=== PATIENT | male | born 1985 | race American Indian/Alaskan Native ===

== ENCOUNTER 2017-01-12 13:17 | Emergency (ER) | payer MEDICAID ==
[2017-01-12 13:32] VITALS: BP 145/75
[2017-01-12] MEDS ORDERED: Lidocaine 1% 10 ML MDV INJECT ONE (13:54)
--- NOTE | 2017-01-12 13:59 | EDM.PDOC ---
ED HPI GENERAL MEDICAL PROBLEM - General Chief Complaint: Chest Pain Stated Complaint: CHEST PRESSURE Time Seen by Provider: 01/12/17 13:42 Source of Information: Reports: Patient History Limitations: Reports: No Limitations - History of Present Illness INITIAL COMMENTS - FREE TEXT/NARRATIVE: Patient is a 31-year-old male presents ED complaining of an abscess to his anterior chest. Patient has a history of similar lesion to his chest approx one year ago. Lesion was I&D and was placed on antibiotics for resolution. Patient has no documented history of MRSA per patient. Reports lesion started to swell yesterday with worsening pain. States he had a fever of 101F. He had no fever this morning. Took Motrin this morning for pain. Pain is localized with no radiation. Denies any nausea or vomiting or other abscesses as such. Middle Chest Pain Score (Numeric/FACES): 8 - Related Data Allergies Allergy/AdvReac Type Severity Reaction Status Date / Time No Known Allergies Allergy Verified 01/12/17 13:27 Home Meds: Home Meds Acetaminophen/HYDROcodone [[place] 325-5 MG] 1 tab PO Q6H PRN #12 tablet 01/12/17 [Rx] Ciprofloxacin HCl [Cipro] 500 mg PO BID #28 tablet 01/12/17 [Rx] Doxycycline [Vibramycin] 100 mg PO Q12HR #28 cap 01/12/17 [Rx] Past Medical History - Past Health History Medical/Surgical History: Denies Medical/Surgical History HEENT History: Reports: Impaired Vision Musculoskeletal History: Reports: Back Pain, Chronic Dermatologic History: Reports: Cellulitis - Past Surgical History HEENT Surgical History: Reports: None Social & Family History - Family History Family Medical History: Noncontributory - Tobacco Use Smoking Status *Q: Current Every Day Smoker Years of Tobacco use: 5 Packs/Tins Daily: 1 Used Tobacco, but Quit: No Second Hand Smoke Exposure: No - Caffeine Use Caffeine Use: Reports: Coffee, Soda - Recreational Drug Use Recreational Drug Use: No Drug Use in Last 12 Months: Yes Recreational Drug Type: Reports: Marijuana/Hashish Recreational Drug Use Frequency: Rarely - Living Situation & Occupation Living situation: Reports: , with Family Occupation: Unemployed ED ROS GENERAL - Review of Systems Review Of Systems: ROS reveals no pertinent complaints other than HPI. ED EXAM, SKIN/RASH Exam: See Below Exam Limited By: No Limitations General Appearance: Alert, WD/WN, Mild Distress Ears: Hearing Grossly Normal Nose: Normal Inspection Throat/Mouth: Normal Voice, No Airway Compromise Respiratory/Chest: No Respiratory Distress, Normal Breath Sounds, No Accessory Muscle Use, Other (tenderness to the anterior chest along the right upper sternal border. abscess present measuring approximately 3 cm x 4 cm in diameter. Area is fluctuant with increased redness and pain with palpation.) Cardiovascular: Normal Peripheral Pulses, Regular Rate, Rhythm, No Murmur Peripheral Pulses: 2+: Radial (L) Neurological: Alert, Oriented, CN II-XII Intact, No Motor/Sensory Deficits Psychiatric: Normal Affect, Normal Mood Skin: Warm, Dry ED SKIN PROCEDURES - I&D Site: anterior chest Skin Prep: Sterile Drape Local Anesthesia: Lidocaine: 1% Plain Local Anesthetic Volume: 5cc Area Incised With: 11 Blade Drainage: Purulent, Bloody, Large Amount Probed to Break Up Loculations: Yes Packed With: 1/2 in. Iodoform Sterile Dressinx4(s) Complications: No Course - Vital Signs Last Recorded V/S: Last Vital Signs Temp 97.5 F 01/12/17 13:30 Pulse 90 01/12/17 13:30 Resp 18 01/12/17 13:30 BP 145/75 H 01/12/17 13:30 Pulse Ox 97 01/12/17 13:30 - Orders/Labs/Meds Meds: Medications Discontinued Medications Generic Name Dose Route Start Last Admin Trade Name Freq PRN Reason Stop Dose Admin Hydrocodone Bitart/Acetaminophen 1 tab 01/12/17 14:31 01/12/17 14:54 [place] 325-5 Mg PO 01/12/17 14:32 1 tab ONETIME ONE Administration Doxycycline Hyclate 200 mg 01/12/17 14:31 01/12/17 14:54 Vibramycin PO 01/12/17 14:32 200 mg ONETIME ONE Administration Lidocaine HCl 10 ml 01/12/17 13:54 01/12/17 14:14 Xylocaine 1% INJECT 01/12/17 13:55 10 ml ONETIME ONE Administration - Re-Assessments/Exams Free Text/Narrative Re-Assessment/Exam: Patient has a abscess to the anterior chest along the right upper sternal border. Ultrasound was utilized with pus pockets present. I have ordered lidocaine and instructed the nursing staff to set up for I&D. I&D was completed with no complications. Wound was packed with iodoform. 01/12/17 14:32 Ordered doxycycine 200mg PO and norco 5-325mg po. Will discharge home with instructions and prescriptions as documented. Departure - Departure Time of Disposition: 14:33 Disposition: Home, Self-Care 01 Condition: Good Clinical Impression: Abscess of chest wall - Discharge Information Prescriptions: Doxycycline [Vibramycin] 100 mg PO Q12HR #28 cap Acetaminophen/HYDROcodone [[place] 325-5 MG] 1 tab PO Q6H PRN #12 tablet PRN Reason: Pain (Severe 7-10) Ciprofloxacin HCl [Cipro] 500 mg PO BID #28 tablet Instructions: Abscess, [id number] Forms: ED Department Discharge, ED Return to Work/School Form Additional Instructions: Take the antibiotics as prescribed. Leave packing in place until tomorrow.Cleanse site twice daily with soap and water, pat dry, reapply dressing until it stops draining. This will require healing by secondary intentions which is from the inside out. follow-up with PCP at conclusion of therapy to ensure resolution. Return to ED for any new or worsening symptoms. Again suggest being evaluated by a contract forester to determine best treatment for cystic acne. No driving today since since receiving a sedative medication while in the ED. No driving while taking the [place]. Utilize ibuprofen and Tylenol in alternating fashion for pain. For severe pain take [place] one tab every 6 hours as needed.
[2017-01-12] MEDS ORDERED: Acetaminophen/HYDROcodone 325-5 MG Tab PO ONE (14:31)
[2017-01-12] MEDS ORDERED: Doxycycline 100 MG Cap PO ONE (14:31)
== END 2017-01-12 15:02 | disposition home or self-care (01) ==
LOC: JD.ED 13:17
DX: L02.213 Cutaneous abscess of chest wall (principal); F17.210 Nicotine dependence, cigarettes, uncomplicated
CPT/HCPCS: 10061; 99284; A9270; 10060; 99283-25

== ENCOUNTER 2017-01-30 06:53 | Day surgery (SDC) | payer MEDICAID ==
[~2017-01-30 06:53] MED LIST: Lactated Ringers 1,000 ML IV SCH; Lidocaine 1%/Sod Bicarbonate in NS 8.4% 1 ML Syringe IV PRN; Sodium Chloride 0.9% 10 ML Syringe FLUSH PRN
[2017-01-30] MEDS ORDERED: Propofol 200 MG/20 ML SDV ONE ×3 (07:09→08:36)
[2017-01-30] MEDS ORDERED: fentaNYL 100 MCG/2 ML SDV ONE ×2 (07:09→08:23)
[2017-01-30] MEDS ORDERED: Lidocaine 1% 4 ML ONE ×2 (07:09→08:44)
[2017-01-30] MEDS ORDERED: Midazolam 1 MG/ML 2 ML SDV ONE ×2 (07:09→08:23)
[2017-01-30] MEDS ORDERED: Bupivacaine 0.5%/EPINEPHrine 1:200,000 50 ML MDV ONE (07:22)
[2017-01-30] MEDS ORDERED: Lidocaine 1% with EPINEPHrine 1:100,000 20 ML MDV ONE (07:22)
--- NOTE | 2017-01-30 08:04 | PCM.PREANE ---
Preanesthetic Assessment - Anesthesia/Transfusion/Family Hx Anesthesia History: No Prior Anesthesia Type of Anesthesia Reaction: Unknown Family History of Anesthesia Reaction: No Transfusion History: No Prior Transfusion(s) - Review of Systems General: No Symptoms Pulmonary: No Symptoms Cardiovascular: No Symptoms Gastrointestinal: No Symptoms Neurological: No Symptoms Other: Reports: None - Physical Assessment NPO Status Date: 01/29/17 NPO Status Time: 21:00 Pulse: 91 O2 Sat by Pulse Oximetry: 96 Respiratory Rate: 20 Blood Pressure: 140/81 Temperature: 36.6 C Vital Signs: Last Vital Signs Temp 36.6 C 01/30/17 07:00 Pulse 91 01/30/17 07:00 Resp 20 01/30/17 07:00 BP 140/81 01/30/17 07:00 Pulse Ox 96 01/30/17 07:00 Height: 1.91 m Weight: 156.943 kg ASA Class: 2 Mental Status: Alert & Oriented x3 Airway Class: Mallampati = 2 Dentition: Reports: Normal Dentition, Caries Thyro-Mental Finger Breadths: 3 Mouth Opening Finger Breadths: 3 ROM/Head Extension: Limited/Partial Lungs: Clear to Auscultation, Normal Respiratory Effort Cardiovascular: Regular Rate, Regular Rhythm - Allergies Allergies/Adverse Reactions: Allergies Allergy/AdvReac Type Severity Reaction Status Date / Time No Known Allergies Allergy Verified 01/29/17 13:50 - Blood Blood Available: No Product(s) Available: None - Anesthesia Plan Pre-Op Medication Ordered: None - Acknowledgements Anesthesia Type Planned: MAC Pt an Appropriate Candidate for the Planned Anesthesia: Yes Alternatives and Risks of Anesthesia Discussed w Pt/Guardian: Yes Pt/Guardian Understands and Agrees with Anesthesia Plan: Yes PreAnesthesia Questionnaire - Past Health History Medical/Surgical History: Denies Medical/Surgical History HEENT History: Reports: Impaired Vision Musculoskeletal History: Reports: Back Pain, Chronic Dermatologic History: Reports: Cellulitis - Past Surgical History HEENT Surgical History: Reports: None - SUBSTANCE USE Smoking Status *Q: Current Every Day Smoker Tobacco Use Within Last Twelve Months: Cigarettes Second Hand Smoke Exposure: No Days Per Week of Alcohol Use: 1 Number of Drinks Per Day: 1 Total Drinks Per Week: 1 Recreational Drug Use History: No Recreational Drug Type: Reports: Marijuana/Hashish - HOME MEDS Home Medications: Home Meds Acetaminophen/HYDROcodone [[place] 325-5 MG] 1 tab PO Q6H PRN #12 tablet 01/12/17 [Rx] Doxycycline [Vibramycin] 100 mg PO Q12HR #28 cap 01/12/17 [Rx] - CURRENT (IN HOUSE) MEDS Current Meds: Current Medications Lactated Ringer's (Ringers, Lactated) 1,000 mls @ 125 mls/hr IV ASDIRECTED JOS Last Admin: 01/30/17 07:10 Dose: 125 mls/hr Lidocaine/Sodium Bicarbonate (Buffered Lidocaine 1% In Ns 8.4%) 0.25 ml IV ONETIME PRN PRN Reason: Prior to IV Start Last Admin: 01/30/17 07:10 Dose: 0.25 ml Sodium Chloride (Saline Flush) 10 ml FLUSH ASDIRECTED PRN PRN Reason: Keep Vein Open Discontinued Medications Bupivacaine HCl/Epinephrine Bitart (Marcaine 0.5%/Epinephrine 1:200,000) Confirm Administered Dose 50 ml .ROUTE .STK-MED ONE Stop: 01/30/17 07:23 Fentanyl (Sublimaze) Confirm Administered Dose 100 mcg .ROUTE .STK-MED ONE Stop: 01/30/17 07:10 Lidocaine HCl (Xylocaine-Mpf 1%) Confirm Administered Dose 4 mls @ as directed .ROUTE .STK-MED ONE Stop: 01/30/17 07:10 Lidocaine/Epinephrine (Xylocaine 1% With Epinephrine 1:100,000) Confirm Administered Dose 20 ml .ROUTE .STK-MED ONE Stop: 01/30/17 07:23 Midazolam HCl (Versed 1 Mg/Ml) Confirm Administered Dose 2 mg .ROUTE .STK-MED ONE Stop: 01/30/17 07:10 Propofol (Diprivan 20 Ml) Confirm Administered Dose 200 mg .ROUTE .STK-MED ONE Stop: 01/30/17 07:10
[2017-01-30 08:51] VITALS: BP 136/71
[2017-01-30] MEDS ORDERED: Lactated Ringers 1,000 ML ONE (08:52)
--- NOTE | 2017-01-30 08:52 | PCM.OPNOTE ---
- General Post-Op/Procedure Note Date of Surgery/Procedure: 01/30/17 Operative Procedure(s): 1. Incision and drainage of a furuncle base of the right neck and mid chest wall, with cultures and iodoform packing Findings: 1. There was an inclusion cyst within the skin of the neck furuncle with surrounding inflammatory change. There was some granulation tissue but no saman pus. 2. The suprasternal furuncle pad yellow saman pus along with extensive granulation tissue secondary to aborted healing efforts Pre Op Diagnosis: 1. Furuncle neck. 2. Suprasternal furuncle Post-Op Diagnosis: Same Anesthesia Technique: Local, MAC, Moderate Sedation Primary Surgeon: Benny Hernandez Pathology: Cultures EBL in mLs: 5 Complications: None Condition: Good Free Text/Narrative:: After adequate IV sedation and analgesia was obtained with monitoring the patient was placed in the supine position for the procedures. Betadine solution was used to prep the base of the right neck. The field was draped partially with field towels. Several cc's of local analgesia was given centered over the most tender area which wasn't fluctuant. A 15 blade was used to make a 3 cm incision. A 1 cm inclusion cyst was removed. There were 2 smaller ones in the area. There was extensive scarring and granulation tissue but no saman pus. Cultures were obtained. Iodoform packing and gauze were used for the dressing in this area. The sternal area was prepped next and draped in a similar fashion. 5 mL of analgesia was given. A 3 cm incision was made over a slightly fluctuant area. There was a couple of cc of saman yellow pus that flowed onto the field after breaking up loculations with a hemostat. There was a large amount of granulation tissue. A cruciate skin incision limb was extended to the left to open up this cavity. I debrided the area with gauze and excised the scar and granulation tissue with a 15 blade. I then packed this area with half inch iodoform gauze. Sterile gauze and silk tape were used for the dressings in both areas. There were no complications.
[2017-01-30] MEDS ORDERED: Acetaminophen/oxyCODONE 325-5 MG Tab PO ONE (10:30)
== END 2017-01-30 09:56 | disposition home or self-care (01) ==
LOC: JD.SDS 06:53
PROVIDERS: ATTEND Surgery
DX: L02.12 Furuncle of neck (principal); L02.223 Furuncle of chest wall; L72.0 Epidermal cyst; F17.210 Nicotine dependence, cigarettes, uncomplicated
CPT/HCPCS: 10060; 87075; 87076; 87077; 87181; 87186; 87205; A9270; J2250; J3010; J7120; 00300; J2704